=== PATIENT | male | born 1990 | race Asian ===

== ENCOUNTER 2017-09-18 08:14 | Day surgery (SDC) | payer BC ==
[2017-09-18] MEDS ORDERED: FENTAnyl 50 MCG/ML VIAL (10:35)
[2017-09-18] MEDS ORDERED: MIDAZOLAM 1 MG/ML 2 ML INJ ×2 (10:35)
== END 2017-09-18 10:50 | disposition home or self-care (01) ==
LOC: GIL 08:14
DX: K64.8 Other hemorrhoids (principal); Z86.010 Personal history of colon polyps; E11.9 Type 2 diabetes mellitus without complications
CPT/HCPCS: 45378; 82962